=== PATIENT | female | born 1945 | race Caucasian/White ===

== ENCOUNTER 2016-12-28 23:07 | Emergency (ER) | payer MEDICARE ==
[~2016-12-28] VITALS: Ht 165.1 cm; Wt 65.8 kg
[2016-12-29] MEDS ORDERED: IBUPROFEN 600 MG TABLET PO ONE (00:15)
[2016-12-29] MEDS ORDERED: IBUPROFEN 600 MG TABLET ONE (00:23)
--- NOTE | 2016-12-29 00:55 | NUR ---
Patient discharged to home in stable conditon. Written and verbal after care instructions given. Patient verbalizes understanding of instructions.
== END 2016-12-29 00:56 | disposition home or self-care (01) ==
LOC: ER 23:08
DX: S81.811A Laceration without foreign body, right lower leg, initial encounter (principal); J45.909 Unspecified asthma, uncomplicated; Z88.0 Allergy status to penicillin; W20.8XXA Other cause of strike by thrown, projected or falling object, initial encounter; Y93.89 Activity, other specified; Y92.9 Unspecified place or not applicable; Y99.9 Unspecified external cause status
CPT/HCPCS: A4663